=== PATIENT | female | born 1995 | race Caucasian/White ===

== ENCOUNTER 2019-07-20 11:30 | Observation (INO) | payer OTHER ==
[2019-07-20 11:59] LABS: BASOPHILS ABSOLUTE AUTO 0.04 K/mm3 (0.00-0.23); BASOPHILS PERCENT AUTO 0 % (0-2); EOSINOPHILS ABSOLUTE AUTO 0.09 K/mm3 (0.00-0.68); EOSINOPHILS PERCENT AUTO 1 % (0-6); Hematocrit 36.8 % (33.0-51.0); Hemoglobin 12.4 g/dL (11.5-16.0); IMMATURE GRAN ABSOLUTE AUTO 0.07 K/mm3 (0.00-0.10); IMMATURE GRAN PERCENT AUTO 1 % (0-1); LYMPHOCYTES ABSOLUTE AUTO 2.11 K/mm3 (0.84-5.20); LYMPHOCYTES PERCENT AUTO 17 % (21-46); MONOCYTES ABSOLUTE AUTO 0.77 K/mm3 (0.16-1.47); MONOCYTES PERCENT AUTO 6 % (4-13); Mean Corpuscular HGB 30.8 pg (26.0-34.0); Mean Corpuscular HGB Conc 33.7 g/dL (31.5-36.5); Mean Corpuscular Volume 92 fL (80-100); NEUTROPHILS ABSOLUTE AUTO 9.19 K/mm3 (1.96-9.15); NEUTROPHILS PERCENT AUTO 75 % (41-73); Platelet Count 153 K/mm3 (150-400); Red Blood Cell Count 4.02 M/mm3 (3.80-5.20); White Blood Cell Count 12.27 K/mm3 (4.00-11.30)
[2019-07-20 12:16] LABS: Alanine Aminotransfer (ALT/SGP 23 U/L (12-78); Albumin, Blood 2.6 g/dL (3.4-5.0); Albumin/Globulin Ratio 0.7 (0.8-1.8); Alk Phos 94 U/L (50-136); Anion Gap 8 mmol/L (6-16); Aspartate Aminotrans (AST/SGOT 20 U/L (12-37); Bilirubin, Total 0.3 mg/dL (0.1-1.0); Blood Urea Nitrogen 11 mg/dL (8-24); CO2, Blood 19 mmol/L (21-32); Calcium, Blood 8.3 mg/dL (8.5-10.1); Chloride, Blood 111 mmol/L (98-108); Creatinine, Blood 0.61 mg/dL (0.40-1.00); Globulin, Blood 3.6 g/dL (2.2-4.0); Glomerular Filtration Rate >60 (60-); Glucose, Blood 75 mg/dL (70-99); Potassium, Blood 4.4 mmol/L (3.5-5.5); Sodium, Blood 138 mmol/L (136-145); Total Protein, Blood 6.2 g/dL (6.4-8.2)
[2019-07-20 12:21] LABS: Mean Platelet Volume 13.3 fL (9.1-12.4)
--- NOTE | 2019-07-20 16:15 | NUR ---
Pt to ambulance for transport to [place].
--- NOTE | 2019-07-20 17:35 | NUR ---
VS during transport Magnesium Sulfate infusing 2gm/hr. 1625 - BP 149/110 HR 84 RR 24 1628 - BP 144/96 1634 - BP 137/82 HR 82 FHR 130s 1643 - BP 137/86 hr 85 RR 18 1650 - FHR [phone] - BP 143/92 HR 90 1703 - BP 141/91 HR 87 RR 18 1705 - FHR [phone] - BP 134/89 HR 86 1725 - BP 139/81 HR 87 RR 16 FHR 125-135 Pt arrived at [facility]. Report to BALTA Zaragoza.
== END 2019-07-20 16:20 | disposition short-term general hospital (02) ==
LOC: OBS 11:30 → BC 11:30 → OBS 13:57 → BC 13:58
PROVIDERS: ADMIT Advanced Practice Midwife
DX: O14.13 Severe pre-eclampsia, third trimester (principal); O99.343 Other mental disorders complicating pregnancy, third trimester; Z3A.31 31 weeks gestation of pregnancy; Z87.891 Personal history of nicotine dependence
CPT/HCPCS: 36415; 59025; 80053; 85025; 96365; 96372; 96375; 96376; G0378; J0360; J0610; J0702; J3475; J7120

== ENCOUNTER → 2019-07-20 | Outpatient (CLI) | payer OTHER ==
[~2019-07-20] MED LIST: IBUP800 PO; LABE200 PO; ONDA4 PO; OXYACE5T PO
[2019-07-20 14:18] LABS: Creatinine Urine 48.8 mg/dL (27.00-270.00)
== END | disposition home or self-care (01) ==
LOC: LAB 11:57 → LAB SHORT 11:57
PROVIDERS: Advanced Practice Midwife
DX: O13.3 Gestational [pregnancy-induced] hypertension without significant proteinuria, third trimester (principal)
CPT/HCPCS: 81050; 82570; 84156

== ENCOUNTER 2021-04-19 06:41 | Inpatient (IN) | payer OTHER ==
[~2021-04-19] VITALS: Ht 162.6 cm; Wt 68.0 kg
[2021-04-19 07:36] LABS: BASOPHILS ABSOLUTE AUTO 0.05 K/mm3 (0.00-0.23); BASOPHILS PERCENT AUTO 0 % (0-2); EOSINOPHILS ABSOLUTE AUTO 0.09 K/mm3 (0.00-0.68); EOSINOPHILS PERCENT AUTO 1 % (0-6); Hematocrit 35.1 % (33.0-51.0); IMMATURE GRAN ABSOLUTE AUTO 0.23 K/mm3 (0.00-0.10); IMMATURE GRAN PERCENT AUTO 2 % (0-1); LYMPHOCYTES ABSOLUTE AUTO 2.69 K/mm3 (0.84-5.20); LYMPHOCYTES PERCENT AUTO 20 % (21-46); MONOCYTES ABSOLUTE AUTO 0.83 K/mm3 (0.16-1.47); MONOCYTES PERCENT AUTO 6 % (4-13); Mean Corpuscular HGB 31.3 pg (26.0-34.0); Mean Corpuscular HGB Conc 34.2 g/dL (31.5-36.5); Mean Corpuscular Volume 91 fL (80-100); Mean Platelet Volume 12.7 fL (9.1-12.4); NEUTROPHILS ABSOLUTE AUTO 9.57 K/mm3 (1.96-9.15); NEUTROPHILS PERCENT AUTO 71 % (41-73); Platelet Count 186 K/mm3 (150-400); RDW Coefficient Variation 13.1 % (11.7-14.2); RDW Standard Deviation 42.9 fL (35.1-46.3); Red Blood Cell Count 3.84 M/mm3 (3.80-5.20); White Blood Cell Count 13.46 K/mm3 (4.00-11.30)
[2021-04-19] MEDS ORDERED: LABE100 PO (07:38)
[2021-04-19] MEDS ORDERED: ASPI81CH PO (07:38)
[2021-04-19 07:48] LABS: Influenza A, PCR NEGATIVE (NEGATIVE); Influenza B, PCR NEGATIVE (NEGATIVE); Resp Syncytial Virus, PCR NEGATIVE (NEGATIVE); SARS-Cov-2 (COVID-19) PCR, MMC NEGATIVE (NEGATIVE)
--- NOTE | 2021-04-19 08:55 | NUR ---
BP FIRST HIGH BP NOTED AND DR WONDERLY UPDATED. IF NEXT 15 MINUTE BP MEETS PARAMETERS WE WILL START THE IV LABETALOL PROTOCOL.
--- NOTE | 2021-04-19 10:39 | NUR ---
04/19/21 Marleen Medrano WHEN INSERTING ARELLANO YELLOW URINE DRAINING. AFTER ARELLANO PLACED PRIOR TO DRAPING THE PATIENT, NOTICED THE ARELLANO DRAINING RED URINE BRIEFLY, NOTIFIED .
[2021-04-19 11:12] LABS: PCO2 Cord - Arterial 47.2 mmHg (40-50); pH Cord - Arterial 7.26 (7.28-7.35)
[2021-04-19 11:13] LABS: PO2 Cord - Arterial < 16 mmHg (16-20)
[2021-04-19 11:18] LABS: PCO2 Cord - Venous 41.3 mmHg (40-50); pH Umbilical Cord - Venous 7.35 (7.26-7.35)
[2021-04-20 05:45] LABS: BASOPHILS ABSOLUTE AUTO 0.05 K/mm3 (0.00-0.23); BASOPHILS PERCENT AUTO 0 % (0-2); EOSINOPHILS ABSOLUTE AUTO 0.15 K/mm3 (0.00-0.68); EOSINOPHILS PERCENT AUTO 1 % (0-6); Hematocrit 33.2 % (33.0-51.0); IMMATURE GRAN ABSOLUTE AUTO 0.16 K/mm3 (0.00-0.10); IMMATURE GRAN PERCENT AUTO 1 % (0-1); LYMPHOCYTES ABSOLUTE AUTO 1.59 K/mm3 (0.84-5.20); LYMPHOCYTES PERCENT AUTO 10 % (21-46); MONOCYTES PERCENT AUTO 7 % (4-13); Mean Corpuscular HGB 30.8 pg (26.0-34.0); Mean Corpuscular HGB Conc 33.1 g/dL (31.5-36.5); Mean Corpuscular Volume 93 fL (80-100); Mean Platelet Volume 12.9 fL (9.1-12.4); NEUTROPHILS ABSOLUTE AUTO 13.33 K/mm3 (1.96-9.15); NEUTROPHILS PERCENT AUTO 81 % (41-73); Platelet Count 161 K/mm3 (150-400); RDW Coefficient Variation 12.9 % (11.7-14.2); RDW Standard Deviation 44.2 fL (35.1-46.3); Red Blood Cell Count 3.57 M/mm3 (3.80-5.20); White Blood Cell Count 16.48 K/mm3 (4.00-11.30)
--- NOTE | 2021-04-20 09:03 | NUR ---
PT AMBULATING IN ROOM AND VOIDING WITHOUT DIFFICULTY. PAIN WELL CONTROLLED WITH MEDS. LOCHIA SCANT. CARING FOR SELF AND BABY INDEPENDANTLY. NO QUESTIONS OR CONCERNS
--- NOTE | 2021-04-20 12:03 | NUR ---
cheri dill notified of bps, consulting with dr lagos and will call back
--- NOTE | 2021-04-20 12:32 | NUR ---
LAB HERE TO DRAW [facility] REPEAT LABS, GETTING MAG SULFATE 4 GRAMS NOW
[2021-04-20 12:57] LABS: Alanine Aminotransfer (ALT/SGP 14 U/L (12-78); Albumin/Globulin Ratio 0.7 (0.8-1.8); Alk Phos 149 U/L (50-136); Anion Gap 8 mmol/L (6-16); Aspartate Aminotrans (AST/SGOT 25 U/L (12-37); Bilirubin, Total 0.2 mg/dL (0.1-1.0); Blood Urea Nitrogen 9 mg/dL (8-24); Bun/Creatinine Ratio 8.8 (12.0-20.0); CO2, Blood 22 mmol/L (21-32); Chloride, Blood 111 mmol/L (98-108); Creatinine, Blood 1.02 mg/dL (0.40-1.00); Glomerular Filtration Rate >60 (60-); Glucose, Blood 102 mg/dL (70-99); Lactate Dehydrogenase (Ld),Bld 230 U/L (100-240); Potassium, Blood 4.1 mmol/L (3.5-5.5); Sodium, Blood 141 mmol/L (136-145)
[2021-04-20 13:08] LABS: International Normalized Ratio 0.88; Prothrombin Time Results 9.3 Sec (9.7-11.5)
[2021-04-20 16:36] LABS: Creatinine, Urine Random 26.8 mg/dL (27.00-270.00); Protein, Urine Random 10.4 mg/dL (0.0-11.9); Protein/Creat Ratio, Ur Random 0.4
--- NOTE | 2021-04-20 17:41 | NUR ---
LATE ENTRY [id number] [facility] [place] IN HOUSE MAKING ROUNDS. REVEIVED BP AND ORDERED TO HOLD LABETALOL TO SEE WHAT BP DO. ONCE BP WAS REPEATED 1 HOUR LATER DETERMINED TO GIVE LABETALOL AT THAT TIME. WILL KEEP UPDATED ON BP TO PROVIDER
[2021-04-21] MEDS ORDERED: Percocet 5-3251 EACH PO (02:29)
[2021-04-21] MEDS ORDERED: IBUP800 PO (02:30)
--- NOTE | 2021-04-21 10:35 | NUR ---
MAG KERR ON PHONE AMBAR HAINES TO DISCUSS PLAN OF CARE. ORDERED TO TURN MAG OFF RIGHT NOW AND LABS ORDERED. ONCE LABS ARE REVEIWED WILL DECIDE ON RESTART OF MAGNESIUM. PT IS A LITTLE LETHARGIC AND DIDNT GET MUCH SLEEP LAST NIGHT BUT OVERALL IS DOING WELL. ATE A GOOD BREAKFAST AND SITTING UP IN BED PUMPING AT THIS TIME. PT VERBALIZES UNDERSTANDING OF PLAN OF CARE AND HAS NO QUESTIONS.
[2021-04-21 11:06] LABS: BASOPHILS ABSOLUTE AUTO 0.07 K/mm3 (0.00-0.23); BASOPHILS PERCENT AUTO 0 % (0-2); EOSINOPHILS ABSOLUTE AUTO 0.16 K/mm3 (0.00-0.68); EOSINOPHILS PERCENT AUTO 1 % (0-6); Hematocrit 34.9 % (33.0-51.0); Hemoglobin 11.8 g/dL (11.5-16.0); IMMATURE GRAN ABSOLUTE AUTO 0.21 K/mm3 (0.00-0.10); IMMATURE GRAN PERCENT AUTO 1 % (0-1); LYMPHOCYTES PERCENT AUTO 8 % (21-46); MONOCYTES ABSOLUTE AUTO 0.46 K/mm3 (0.16-1.47); MONOCYTES PERCENT AUTO 3 % (4-13); Mean Corpuscular HGB 31.4 pg (26.0-34.0); Mean Corpuscular HGB Conc 33.8 g/dL (31.5-36.5); Mean Corpuscular Volume 93 fL (80-100); Mean Platelet Volume 12.3 fL (9.1-12.4); NEUTROPHILS PERCENT AUTO 87 % (41-73); Platelet Count 192 K/mm3 (150-400); RDW Coefficient Variation 13.2 % (11.7-14.2); RDW Standard Deviation 44.7 fL (35.1-46.3); Red Blood Cell Count 3.76 M/mm3 (3.80-5.20)
[2021-04-21 11:23] LABS: Alanine Aminotransfer (ALT/SGP 14 U/L (12-78); Albumin, Blood 2.3 g/dL (3.4-5.0); Albumin/Globulin Ratio 0.7 (0.8-1.8); Alk Phos 158 U/L (50-136); Anion Gap 8 mmol/L (6-16); Aspartate Aminotrans (AST/SGOT 24 U/L (12-37); Bilirubin, Total 0.2 mg/dL (0.1-1.0); Blood Urea Nitrogen 10 mg/dL (8-24); Bun/Creatinine Ratio 10.3 (12.0-20.0); CO2, Blood 27 mmol/L (21-32); Calcium, Blood 8.1 mg/dL (8.5-10.1); Chloride, Blood 103 mmol/L (98-108); Creatinine, Blood 0.98 mg/dL (0.40-1.00); Globulin, Blood 3.5 g/dL (2.2-4.0); Glomerular Filtration Rate >60 (60-); Glucose, Blood 116 mg/dL (70-99); Potassium, Blood 4.3 mmol/L (3.5-5.5); Sodium, Blood 138 mmol/L (136-145); Total Protein, Blood 5.8 g/dL (6.4-8.2)
[2021-04-21 11:25] LABS: Magnesium, Blood 9.2 mg/dL (1.6-2.4)
--- NOTE | 2021-04-22 06:45 | NUR ---
PT BP WAS TRENDING UP AT START OF SHIFT. UPDATED CARHART AND SHE ORDERED IV LABETALOL. BP WAS MONITORED OVER A THREE HOUR PERIOD AND STAYED WITHIN LIMITS. PT ANNALISA SOB, DIZZINESS, SEEING SPOTS, VISION CHANGES AND UPPER GASTRIC PAIN THROUGHOUT WHOLE SHIFT.
[2021-04-22] MEDS ORDERED: LABE200 PO (10:09)
== END 2021-04-22 12:11 | disposition home or self-care (01) | DRG 788 ==
LOC: BC 06:41
PROVIDERS: Registered Nurse Community Health; ADMIT Obstetrics & Gynecology
PROC: 10D00Z1 Extraction of Products of Conception, Low, Open Approach (ICD-10-PCS; principal; 2021-04-19 10:45)
PROC: 3E0234Z Introduction of Serum, Toxoid and Vaccine into Muscle, Percutaneous Approach (ICD-10-PCS; 2021-04-22)
DX: O32.1XX0 Maternal care for breech presentation, not applicable or unspecified (principal); O34.211 Maternal care for low transverse scar from previous cesarean delivery; N85.8 Other specified noninflammatory disorders of uterus; Z20.822 Contact with and (suspected) exposure to COVID-19; Z3A.38 38 weeks gestation of pregnancy; Z37.0 Single live birth; O13.4 Gestational [pregnancy-induced] hypertension without significant proteinuria, complicating childbirth; Z23 Encounter for immunization; O99.284 Endocrine, nutritional and metabolic diseases complicating childbirth; E55.9 Vitamin D deficiency, unspecified; O99.344 Other mental disorders complicating childbirth; F32.A Depression, unspecified; F41.9 Anxiety disorder, unspecified; F43.10 Post-traumatic stress disorder, unspecified; Z79.899 Other long term (current) drug therapy
CPT/HCPCS: 0241U; 36415; 80053; 82570; 82803; 83615; 83735; 84156; 85025; 85384; 85610; 85730; 86850; 86900; 86901; 90686; A9270; J0610; J0690; J1885; J2590; J2765; J3010; J3475; J7120

== ENCOUNTER → 2022-02-12 | Outpatient (CLI) | payer OTHER ==
[~2022-02-12] MED LIST changes: +ASPI81CH PO; +LABE100 PO; +Percocet 5-3251 EACH PO
[2022-02-12 15:09] LABS: Free Thyroxine 0.93 ng/dL (0.70-1.60)
[2022-02-12 15:14] LABS: Albumin, Blood 4.3 g/dL (3.4-5.0); Albumin/Globulin Ratio 1.2 (0.8-1.8); Bilirubin, Total 0.4 mg/dL (0.1-1.0); Bun/Creatinine Ratio 17.4 (12.0-20.0); Calcium, Blood 8.9 mg/dL (8.5-10.1); Creatinine, Blood 0.57 mg/dL (0.40-1.00); Globulin, Blood 3.6 g/dL (2.2-4.0); Potassium, Blood 3.9 mmol/L (3.5-5.5); Thyroid Stimulating Hormone 1.16 uIU/mL (0.360-4.800); Total Protein, Blood 7.9 g/dL (6.4-8.2)
== END | disposition home or self-care (01) ==
LOC: LAB SHORT 13:42 → LAB 13:42
PROVIDERS: Family Medicine
DX: F32.A Depression, unspecified (principal); R03.0 Elevated blood-pressure reading, without diagnosis of hypertension
CPT/HCPCS: 80053; 84439; 84443